=== PATIENT | male | born 1945 | race Asian ===

== ENCOUNTER 2016-12-18 08:39 | Outpatient (CLI) | payer OTHER ==
[~2016-12-18 08:39] MED LIST: ALPR0.2566 PO; AMLO2.5T PO; ANTIVERT25 MG PO; COSOPT1 ML OP; CYCL10TA35 PO; DIOVAN HCT320 MG/25 PO; ECOTRIN REGULA325 MG PO; FLUOXETINE20 M1 PO; GABA300C2 PO; HYDR-2748 PO; LIPITOR40 MG PO; LISINOP/HCTZ1 TA2 PO; NITR0.4S2 SL; OXYC5TAB53 PO; PANT40TA PO; PROAIR HFA IN; TAMSULOSIN0.4 MG PO; TRAM50TA PO
== END 2016-12-18 08:42 | disposition short-term general hospital (02) ==
LOC: AMB 08:39
DX: R07.89 Other chest pain (principal); R42 Dizziness and giddiness; Z95.0 Presence of cardiac pacemaker
CPT/HCPCS: A0425; A0427

== ENCOUNTER 2016-12-18 08:49 | Emergency (ER) | payer OTHER ==
[~2016-12-18] VITALS: Ht 165.1 cm; Wt 74.8 kg
[2016-12-18 08:54] VITALS: TEMP 97.7
[2016-12-18 09:16] LABS: PLATELET COUNT 190 K/uL (142-355)
[2016-12-18 09:26] LABS: POTASSIUM 4.3 mmol/L (3.6-5.2); SODIUM 137 mmol/L (136-145)
[2016-12-18 09:44] LABS: PARTIAL THROMBOPLASTIN TIME 22.8 SECONDS (24.5-33.6)
[2016-12-18 13:15] VITALS: BP 142/68
== END 2016-12-18 14:33 | disposition short-term general hospital (02) ==
LOC: ED 08:49
PROVIDERS: Specialist
DX: I24.9 Acute ischemic heart disease, unspecified (principal)
CPT/HCPCS: 80053; 82550; 83880; 84484; 85027; 85379; 85610; 85730; 86318; 93005; 96365; 96375; 99284; J1644

== ENCOUNTER 2016-12-18 14:33 | Outpatient (CLI) | payer OTHER | END 2016-12-18 15:11 | disposition short-term general hospital (02) | LOC: AMB 14:33 | DX: I24.9 Acute ischemic heart disease, unspecified (principal) | CPT/HCPCS: A0425; A0427 ==

== ENCOUNTER 2017-02-28 16:00 | Outpatient (CLI) | payer OTHER | END 2017-02-28 16:04 | disposition short-term general hospital (02) | LOC: AMB 16:00 | DX: R07.89 Other chest pain (principal) | CPT/HCPCS: A0425; A0427 ==

== ENCOUNTER 2017-02-28 16:11 | Emergency (ER) | payer OTHER ==
[~2017-02-28] VITALS: Ht 175.3 cm; Wt 70.3 kg
[2017-02-28 16:10] VITALS: TEMP 98.2
[2017-02-28 16:31] LABS: PLATELET COUNT 199 K/uL (142-355)
[2017-02-28 16:39] LABS: POTASSIUM 3.8 mmol/L (3.6-5.2); SODIUM 138 mmol/L (136-145)
[2017-02-28 18:49] VITALS: BP 105/78
== END 2017-02-28 18:49 | disposition home or self-care (01) ==
LOC: ED 16:11
DX: M94.0 Chondrocostal junction syndrome [Tietze] (principal)
CPT/HCPCS: 36415; 80053; 80307; 81000; 82550; 82553; 84484; 85027; 93005; 96365; 99284; G0479

== ENCOUNTER 2017-04-08 13:25 | Outpatient (CLI) | payer OTHER | END 2017-04-08 13:56 | disposition short-term general hospital (02) | LOC: AMB 13:25 | DX: R51 Headache (principal); R22.0 Localized swelling, mass and lump, head; R06.02 Shortness of breath | CPT/HCPCS: A0425; A0427 ==

== ENCOUNTER 2017-07-09 09:36 | Outpatient (CLI) | payer OTHER | END 2017-07-09 09:40 | disposition short-term general hospital (02) | LOC: AMB 09:36 | DX: R07.89 Other chest pain (principal); R06.09 Other forms of dyspnea; Z95.0 Presence of cardiac pacemaker | CPT/HCPCS: A0425; A0427 ==

== ENCOUNTER 2017-07-09 09:41 | Emergency (ER) | payer OTHER ==
[~2017-07-09] VITALS: Ht 165.1 cm; Wt 73.5 kg
[2017-07-09 10:43] LABS: PLATELET COUNT 213 K/uL (142-355)
[2017-07-09 11:47] LABS: SODIUM 139 mmol/L (136-145)
[2017-07-09 15:43] VITALS: BP 145/74; TEMP 97.8
== END 2017-07-09 16:05 | disposition home or self-care (01) ==
LOC: ED 09:41
PROVIDERS: Internal Medicine
DX: M79.1 Myalgia (principal); M62.838 Other muscle spasm; Z95.0 Presence of cardiac pacemaker
CPT/HCPCS: 36415; 80053; 82550; 84484; 85027; 85379; 93005; 94640; 94664; 94760; 96374; 96375; 99284; J0360; J1885; J2270; Q9963

== ENCOUNTER 2017-08-04 10:07 | Outpatient (CLI) | payer OTHER ==
[2017-08-04 10:52] LABS: PLATELET COUNT 216 K/uL (142-355)
[2017-08-04 10:54] LABS: POTASSIUM 3.8 mmol/L (3.6-5.2)
== END 2017-08-04 21:50 | disposition home or self-care (01) ==
LOC: LABW 10:07
PROVIDERS: Physician Assistant
DX: I42.8 Other cardiomyopathies (principal); Z79.899 Other long term (current) drug therapy; Z51.81 Encounter for therapeutic drug level monitoring
CPT/HCPCS: 36415; 80053; 80061; 82248; 85027

== ENCOUNTER 2017-08-25 15:26 | Emergency (ER) | payer OTHER ==
[~2017-08-25] VITALS: Ht 165.1 cm; Wt 70.8 kg
[2017-08-25 15:53] VITALS: TEMP 98.4
[2017-08-25 17:45] VITALS: BP 133/70
== END 2017-08-25 17:45 | disposition home or self-care (01) ==
LOC: ED 15:26
DX: M79.1 Myalgia (principal)
CPT/HCPCS: 96372; 99282; J1885

== ENCOUNTER 2017-10-07 17:53 | Emergency (ER) | payer OTHER ==
[~2017-10-07] VITALS: Ht 165.1 cm; Wt 71.2 kg
[2017-10-07 18:04] VITALS: BP 114/67; TEMP 98.1
== END 2017-10-07 19:39 | disposition home or self-care (01) ==
LOC: ED 17:53
DX: R61 Generalized hyperhidrosis (principal)
CPT/HCPCS: 99281

== ENCOUNTER 2018-09-17 08:51 | Outpatient (CLI) | payer OTHER ==
[2018-09-17 09:08] LABS: PLATELET COUNT 160 K/uL (142-355)
[2018-09-17 09:45] LABS: POTASSIUM 4.1 mmol/L (3.6-5.2)
== END 2018-09-17 19:44 | disposition home or self-care (01) ==
LOC: LABW 08:51
PROVIDERS: Internal Medicine Clinical Cardiac Electrophysiology
DX: I48.0 Paroxysmal atrial fibrillation (principal); E78.5 Hyperlipidemia, unspecified; R06.00 Dyspnea, unspecified; I27.20 Pulmonary hypertension, unspecified
CPT/HCPCS: 36415; 80053; 80061; 82248; 85027

== ENCOUNTER 2018-10-03 09:22 | Outpatient (CLI) | payer OTHER ==
[2018-10-03] MEDS ORDERED: AMLODIPINE BESYLATE PO (09:53)
[2018-10-03] MEDS ORDERED: TRAVATAN Z0.004 % OPTH (09:54)
[2018-10-03] MEDS ORDERED: METO25TA4 PO (09:54)
[2018-10-03] MEDS ORDERED: CARV3.12 PO (09:55)
[2018-10-03] MEDS ORDERED: RANITIDINE 150150 MG PO (09:55)
[2018-10-03] MEDS ORDERED: ALPR0.5T24 PO (09:56)
== END 2018-10-03 09:27 | disposition short-term general hospital (02) ==
LOC: AMB 09:22
DX: R07.89 Other chest pain (principal)
CPT/HCPCS: A0425; A0427

== ENCOUNTER 2018-10-03 09:29 | Emergency (ER) | payer OTHER ==
[~2018-10-03] VITALS: Ht 165.1 cm; Wt 69.9 kg
[2018-10-03] MEDS ORDERED: AMLODIPINE BESYLATE PO (09:53)
[2018-10-03] MEDS ORDERED: TRAVATAN Z0.004 % OPTH (09:54)
[2018-10-03] MEDS ORDERED: METO25TA4 PO (09:54)
[2018-10-03] MEDS ORDERED: CARV3.12 PO (09:55)
[2018-10-03] MEDS ORDERED: RANITIDINE 150150 MG PO (09:55)
[2018-10-03] MEDS ORDERED: ALPR0.5T24 PO (09:56)
[2018-10-03 10:11] LABS: PLATELET COUNT 241 K/uL (142-355)
[2018-10-03 10:26] LABS: POTASSIUM 4.1 mmol/L (3.6-5.2); SODIUM 140 mmol/L (136-145)
[2018-10-03 13:33] VITALS: BP 127/68; TEMP 98.1
== END 2018-10-03 13:33 | disposition home or self-care (01) ==
LOC: ED 09:36
PROVIDERS: Emergency Medicine
DX: R07.89 Other chest pain (principal); Z98.890 Other specified postprocedural states
CPT/HCPCS: 36415; 80053; 82550; 82553; 84484; 85027; 85379; 93005; 96374; 99284; J2175

== ENCOUNTER 2018-10-18 18:56 | Emergency (ER) | payer OTHER ==
[~2018-10-18] VITALS: Ht 165.1 cm; Wt 70.3 kg
[~2018-10-18 18:56] MED LIST changes: +ALPR0.5T24 PO; +AMLODIPINE BESYLATE PO; +CARV3.12 PO; +METO25TA4 PO; +RANITIDINE 150150 MG PO; +TRAVATAN Z0.004 % OPTH
[2018-10-18 20:34] VITALS: BP 165/81; TEMP 98.4
== END 2018-10-18 20:35 | disposition home or self-care (01) ==
LOC: ED 18:56
DX: S60.921A Unspecified superficial injury of right hand, initial encounter (principal); X58.XXXA Exposure to other specified factors, initial encounter; Y93.89 Activity, other specified; Y92.017 Garden or yard in single-family (private) house as the place of occurrence of the external cause; Y99.8 Other external cause status
CPT/HCPCS: 96372; 99282; J1885

== ENCOUNTER 2018-11-21 11:38 | Emergency (ER) | payer OTHER ==
[~2018-11-21] VITALS: Ht 165.1 cm; Wt 68.0 kg
[2018-11-21 12:45] LABS: PLATELET COUNT 187 K/uL (142-355)
[2018-11-21 13:32] LABS: SODIUM 138 mmol/L (136-145)
[2018-11-21 14:50] VITALS: BP 122/61; TEMP 98.6
== END 2018-11-21 15:00 | disposition home or self-care (01) ==
LOC: ED 11:38
PROVIDERS: Emergency Medicine
DX: R42 Dizziness and giddiness (principal)
CPT/HCPCS: 80053; 82550; 82553; 84484; 85027; 93005; 96360; 99284

== ENCOUNTER 2018-11-21 13:12 | Outpatient (CLI) | payer OTHER | END 2018-11-21 13:29 | disposition short-term general hospital (02) | LOC: AMB 13:12 | DX: R51 Headache (principal); R53.1 Weakness | CPT/HCPCS: A0425; A0426 ==

== ENCOUNTER 2019-02-08 19:53 | Emergency (ER) | payer OTHER ==
[~2019-02-08] VITALS: Ht 165.1 cm; Wt 68.0 kg
[2019-02-08 20:00] VITALS: BP 126/77; TEMP 98.1
== END 2019-02-08 20:34 | disposition home or self-care (01) ==
LOC: ED 19:53
DX: S91.332A Puncture wound without foreign body, left foot, initial encounter (principal); W45.0XXA Nail entering through skin, initial encounter; Y92.89 Other specified places as the place of occurrence of the external cause
CPT/HCPCS: 90471; 90715; 99282

== ENCOUNTER 2019-02-28 12:58 | Emergency (ER) | payer OTHER ==
[~2019-02-28] VITALS: Ht 165.1 cm; Wt 68.0 kg
[2019-02-28] MEDS ORDERED: ELIQUIS STARTER5 MG PO (13:18)
[2019-02-28] MEDS ORDERED: MECLIZINE25 MG PO (13:19)
[2019-02-28 13:41] LABS: PLATELET COUNT 218 K/uL (142-355)
[2019-02-28 13:42] LABS: POTASSIUM 3.9 mmol/L (3.6-5.2); SODIUM 139 mmol/L (136-145)
[2019-02-28 14:32] LABS: PARTIAL THROMBOPLASTIN TIME 23.5 SECONDS (24.5-33.6)
[2019-02-28 16:35] VITALS: BP 142/83; TEMP 98
== END 2019-02-28 16:44 | disposition home or self-care (01) ==
LOC: ED 12:58
PROVIDERS: Hospitalist
DX: E86.0 Dehydration (principal); I95.9 Hypotension, unspecified; I50.9 Heart failure, unspecified
CPT/HCPCS: 36415; 80053; 80320; 81000; 82550; 83880; 84484; 85027; 85610; 85730; 93005; 96360; 96361; 96374; 96375; 99284; J1885; J2405

== ENCOUNTER 2019-04-10 09:17 | Outpatient (CLI) | payer OTHER ==
[~2019-04-10 09:17] MED LIST changes: +ELIQUIS STARTER5 MG PO; +MECLIZINE25 MG PO
== END 2019-04-10 09:21 | disposition short-term general hospital (02) ==
LOC: AMB 09:17
DX: R07.89 Other chest pain (principal)
CPT/HCPCS: A0425; A0427

== ENCOUNTER 2019-04-10 09:25 | Emergency (ER) | payer OTHER ==
[~2019-04-10] VITALS: Ht 165.1 cm; Wt 68.0 kg
[2019-04-10 09:46] LABS: PLATELET COUNT 215 K/uL (142-355)
[2019-04-10 09:55] LABS: POTASSIUM 4.6 mmol/L (3.6-5.2); SODIUM 138 mmol/L (136-145)
[2019-04-10 14:05] VITALS: BP 122/74; TEMP 97.8
== END 2019-04-10 14:05 | disposition home or self-care (01) ==
LOC: ED 09:30
PROVIDERS: Emergency Medicine
DX: R07.89 Other chest pain (principal)
CPT/HCPCS: 80053; 82550; 82553; 84484; 85027; 93005; 99284

== ENCOUNTER 2019-07-16 10:28 | Outpatient (CLI) | payer OTHER | END 2019-07-16 17:00 | disposition home or self-care (01) | LOC: CT 10:28 | DX: R51 Headache (principal); H53.8 Other visual disturbances; R11.2 Nausea with vomiting, unspecified; R42 Dizziness and giddiness ==

== ENCOUNTER 2019-07-16 11:29 | Emergency (ER) | payer OTHER ==
[~2019-07-16] VITALS: Ht 165.1 cm; Wt 69.9 kg
[2019-07-16 11:29] VITALS: TEMP 97.5
[2019-07-16 12:25] LABS: PLATELET COUNT 215 K/uL (142-355)
[2019-07-16 14:26] VITALS: BP 160/83
== END 2019-07-16 14:26 | disposition home or self-care (01) ==
LOC: ED 11:34
PROVIDERS: Family Medicine
DX: R51 Headache (principal); R11.0 Nausea
CPT/HCPCS: 80053; 85027; 85610; 85730; 99283

== ENCOUNTER 2020-03-18 11:09 | Emergency (ER) | payer OTHER ==
[~2020-03-18] VITALS: Ht 165.1 cm; Wt 65.8 kg
[2020-03-18 11:19] VITALS: TEMP 98.9
[2020-03-18 12:54] VITALS: BP 160/71
== END 2020-03-18 12:54 | disposition home or self-care (01) ==
LOC: ED 11:09
DX: S61.552A Open bite of left wrist, initial encounter (principal); W54.0XXA Bitten by dog, initial encounter; Y92.89 Other specified places as the place of occurrence of the external cause
CPT/HCPCS: 96372; 99282; J0696

== ENCOUNTER 2020-05-18 12:48 | Outpatient (CLI) | payer OTHER | END 2020-05-18 19:09 | disposition home or self-care (01) | LOC: US 12:48 | DX: N60.01 Solitary cyst of right breast (principal); R05 Cough ==

== ENCOUNTER 2020-06-17 13:04 | Emergency (ER) | payer OTHER ==
[~2020-06-17] VITALS: Ht 165.1 cm; Wt 65.8 kg
[2020-06-17 13:26] LABS: PLATELET COUNT 172 K/uL (142-355)
[2020-06-17 13:48] LABS: POTASSIUM 4.2 mmol/L (3.6-5.2)
[2020-06-17 14:20] LABS: PARTIAL THROMBOPLASTIN TIME 24.3 SECONDS (24.5-33.6)
[2020-06-17 14:55] VITALS: BP 164/86; TEMP 97.2
== END 2020-06-17 14:55 | disposition home or self-care (01) ==
LOC: ED 13:04
PROVIDERS: Family Medicine
DX: K21.9 Gastro-esophageal reflux disease without esophagitis (principal); R07.89 Other chest pain; W18.39XA Other fall on same level, initial encounter; Y92.098 Other place in other non-institutional residence as the place of occurrence of the external cause
CPT/HCPCS: 80053; 82550; 84484; 85027; 85610; 85730; 86140; 93005; 99284

== ENCOUNTER 2020-07-23 13:30 | Outpatient (CLI) | payer OTHER | END 2020-07-23 21:39 | disposition home or self-care (01) | LOC: MAMMO 13:30 | PROVIDERS: ATTEND Internal Medicine | DX: N64.59 Other signs and symptoms in breast (principal) ==

== ENCOUNTER 2020-08-30 00:25 | Emergency (ER) | payer OTHER ==
[~2020-08-30] VITALS: Ht 166.4 cm; Wt 70.3 kg
[2020-08-30 00:34] VITALS: TEMP 98.5
[2020-08-30 01:55] VITALS: BP 121/70
== END 2020-08-30 01:55 | disposition home or self-care (01) ==
LOC: ED 00:25
DX: S16.1XXA Strain of muscle, fascia and tendon at neck level, initial encounter (principal); R51.9 Headache, unspecified; W17.2XXA Fall into hole, initial encounter; Y92.89 Other specified places as the place of occurrence of the external cause
CPT/HCPCS: 96372; 99283; J1885; J2360

== ENCOUNTER 2020-09-02 10:05 | Outpatient (CLI) | payer OTHER | END 2020-09-02 19:35 | disposition home or self-care (01) | LOC: CT 10:05 | PROVIDERS: ATTEND Internal Medicine | DX: R22.1 Localized swelling, mass and lump, neck (principal); R13.19 Other dysphagia | CPT/HCPCS: 36415; 82565; 84520; Q9963 ==

== ENCOUNTER 2021-02-04 12:56 | Outpatient (CLI) | payer OTHER | END 2021-02-04 22:07 | disposition home or self-care (01) | LOC: MAMMO 12:56 | PROVIDERS: ATTEND Internal Medicine | DX: Z12.31 Encounter for screening mammogram for malignant neoplasm of breast (principal); N64.59 Other signs and symptoms in breast ==

== ENCOUNTER 2021-02-14 23:38 | Emergency (ER) | payer OTHER ==
[~2021-02-14] VITALS: Ht 166.4 cm; Wt 70.3 kg
[2021-02-15 00:25] LABS: POTASSIUM 3.9 mmol/L (3.6-5.2); SODIUM 137 mmol/L (136-145)
[2021-02-15 00:40] LABS: PARTIAL THROMBOPLASTIN TIME 26.5 SECONDS (24.5-33.6)
[2021-02-15 00:45] LABS: PLATELET COUNT 176 K/uL (142-355)
[2021-02-15 01:07] VITALS: BP 132/74; TEMP 98.4
== END 2021-02-15 01:07 | disposition home or self-care (01) ==
LOC: ED 23:38
PROVIDERS: Hospitalist
DX: R07.89 Other chest pain (principal); K21.9 Gastro-esophageal reflux disease without esophagitis
CPT/HCPCS: 36415; 80053; 82550; 84484; 85027; 85610; 85730; 93005; 96374; 96375; 99284; J2765; J3490

== ENCOUNTER 2021-08-10 12:30 | Outpatient (CLI) | payer OTHER | END 2021-08-10 19:30 | disposition home or self-care (01) | LOC: RAD 12:30 | PROVIDERS: ATTEND Nurse Practitioner Family | DX: R06.02 Shortness of breath (principal) ==

== ENCOUNTER 2022-10-20 08:34 | Outpatient (CLI) | payer OTHER | END 2022-10-20 20:41 | disposition home or self-care (01) | LOC: RAD 08:34 | PROVIDERS: ATTEND Physician Assistant | DX: M54.59 Other low back pain (principal) ==